=== PATIENT | male | born 1990 | race Two or more races ===

== ENCOUNTER 2017-02-13 08:29 | Emergency (ER) | payer OTHER ==
--- NOTE | ~2017-02-13 | ER ---
PATIENT'S NAME: AUGUSTO DAILEY [facility] AGE: 26 Y [address] ROOM: [place] [address] LOCATION: [facility] ADMIT DATE: 02/13/2017 ER/Outpatient Report DISCHARGE DATE: FAMILY PHYSICIAN: PHYSICIAN, NO ATTENDING PHYSICIAN: Kaylin Bettencourt TIME OF ARRIVAL: 0829 hours. TIME SEEN: 0830 hours. IDENTIFICATION: A 26-year-old male. CHIEF COMPLAINT: Dizziness. HISTORY OF PRESENT ILLNESS: The patient is a 26-year-old male, who got up to have a bowel movement, was sitting on the toilet, felt dizzy and lightheaded, broke out in a sweat and then had a syncopal episode. He complains of a right temporal headache. He denied chest pain. He has had nausea, vomiting, and feels dizzy. He describes it as a both lightheaded and spinning. He said this has happened to him in the past when he has felt sick or he has strained. He was seen here in the emergency room in March of 2016 with chest and neck pain, had a cardiac workup at that time, which was negative and he was told to follow up with the primary care physician. He does not have a primary care physician. ALLERGIES: NO KNOWN DRUG ALLERGIES. CURRENT MEDICATIONS: No current medications. MEDICAL PROBLEMS: The patient denies. 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 He has a significant other and child here with him. Tobacco use, denies. Alcohol use, occasional. Drug use, he has 5- 6 "joints a day." He denies any other drug use. FAMILY HISTORY: He denies any family historyof premature coronary artery disease. Mother has PATIENT'S NAME: AGUUSTO DAILEY [facility] AGE: 26 Y [address] ROOM: [place] [address] LOCATION: [facility] ADMIT DATE: 02/13/2017 ER/Outpatient Report DISCHARGE DATE: FAMILY PHYSICIAN: PHYSICIAN, NO ATTENDING PHYSICIAN: Kaylin Bettencourt hypertension. REVIEW OF SYSTEMS: All systems reviewed and negative other than what is noted in the HPI. He has no blood in his stools. No dark, tarry, or black stools. : No dysuria. MUSCULOSKELETAL: No joint pain. SKIN: No rashes. ENDOCRINE: No history of diabetes or thyroid abnormalities. HEME: No history of bleeding, diathesis, or blood clots. PHYSICAL EXAMINATION: VITAL SIGNS: Height 5 feet and 6 inches, weight 76 kg, blood pressure 137/80, pulse 57, respirations 20, temperature 96.6, and saturations 100% on room air. GENERAL: A 26-year-old male, in mild distress. 7/10 headache. HEENT: Head: Normocephalic and atraumatic. Ears: TMs translucent both ears. Eyes: Pupils are equal and reactive to light and accommodation. Extraocular movements are intact. Nose: Mucosa pink. No lesions. Mouth: No lesions. Pharynx benign. NECK: Supple. No lymphadenopathy. No thyromegaly. LUNGS: Clear to auscultation. Breath sounds are equal. No rhonchi, wheezes, or rales. HEART: Regular rate and rhythm. No murmur, rub, or gallop. ABDOMEN: Bowel sounds present. Soft, nondistended, and nontender. SKIN: [place], warm, and dry. No lesions or rashes noted. NEUROLOGICAL EXAM: No focal deficit. No lower extremity edema. No calf tenderness. EMERGENCY DEPARTMENT COURSE: An IV was initiated. Labs were drawn. Chest x-ray and EKG are obtained. The patient was given Zofran 4 mg for nausea as well as 1 L of normal saline. The patient's symptoms improved, but he states he still continued to feel dizzy. EKG, normal sinus rhythm at 60 beats per minute. No acute ST elevation or depression. Urine drug screen positive for THC, otherwise negative. UA negative. Hemoglobin 15.9, hematocrit 45.3, platelets 183, white count 9.6, 40% segs, 1% bands, 50% lymphocytes. INR of 1.01. Sodium 142, potassium 3.9, chloride 112, CO2 of 23, BUN 15, creatinine 1.1, blood sugar 106. Liver enzymes normal. Cardiac enzymes negative. Magnesium 2.1. Head CT, normal per Radiology. Chest x-ray, no acute process. Pending Radiology over-read. It was recommended to the patient to have 2-hour EKG and enzymes. I also offered him Valium. He was rather belligerent, stating he wanted to go home. He said he has felt this way before and that he was told nothing is wrong with him. He believes we are telling him nothing is wrong with him as I am telling him his studies are normal. I did recommend as I said, 2-hour EKG and enzymes and some further observation here in the emergency room. The patient was adamant about wanting to go home. He stated that he still felt dizzy. He was fairly uncooperative at that point. He did sign an AMA form and left the PATIENT'S NAME: AUGUSTO DAILEY [facility] AGE: 26 Y [address] ROOM: [place], [place] [address] LOCATION: [facility] ADMIT DATE: 02/13/2017 ER/Outpatient Report DISCHARGE DATE: FAMILY PHYSICIAN: PHYSICIAN, MALACHI ATTENDING PHYSICIAN: Kaylin Bettencourt emergency room. KAYLIN BETTENCOURT MD CAR/anabel /[id number] d: 02/13/17 1641 t: 02/14/17 0610, OUTPATIENT REPORT
[2017-02-13 08:55] LABS: HEMATOCRIT 45.3 % (37.0-53.0); HEMOGLOBIN 15.9 g/dL (12.0-17.0); MCH 31.7 pg (27.0-34.0); MCHC 35.1 gm/dL (32.0-36.5); MCV 90.4 fl (83.0-98.0); MPV 10.8 fl (9.4-12.4); PLATELET COUNT 183 K/uL (150-450); RBC 5.01 M/uL (4.00-6.00); RDW-CV 12.1 % (11.9-14.6); WBC 9.6 K/uL (4.0-11.0)
[2017-02-13 09:07] LABS: INR - (THERAPEUTIC) 1.01 (0.92-1.07); PROTIME 10.6 SECONDS (9.8-11.4); PTT 26 SECONDS (25-32)
[2017-02-13 09:21] LABS: ALBUMIN 4.1 gm/dL (3.5-5.0); ALK PHOS 68 IU/L (33-138); ALT 26 IU/L (12-78); ANION GAP 10.9 (10.0-19.0); AST 14 IU/L (10-40); BLOOD UREA NITROGEN 15 mg/dL (6-24); CALCIUM 8.5 mg/dL (8.5-10.5); CHLORIDE 112 mMol/L (96-110); CO2 23 mMol/L (22-32); CPK 131 IU/L (35-332); CREATININE 1.1 mg/dL (0.6-1.3); MAGNESIUM 2.1 mg/dL (1.8-2.6); POTASSIUM 3.9 mMol/L (3.7-5.1); SODIUM 142 mMol/L (135-145); TOTAL BILIRUBIN 0.9 mg/dL (0.0-1.5); TOTAL PROTEIN 7.9 g/dL (6.0-8.4)
[2017-02-13 09:26] LABS: ABSOLUTE NEUTROPHIL CT (ANC) 3.9 K/uL (1.4-9.0); BANDED NEUTROPHIL # 0.1 K/uL (0.0-0.1); BANDED NEUTROPHILS % 1 %; LYMPHOCYTE # 4.9 K/uL (0.8-4.0); LYMPHOCYTE % 50 %; MONOCYTE # 0.6 K/uL (0.0-1.0); SEGMENTED NEUTROPHIL # 3.8 K/uL (1.4-9.0); SEGMENTED NEUTROPHIL % 40 %
[2017-02-13 10:08] LABS: BILIRUBIN URINE NEGATIVE (NEGATIVE); BLOOD URINE NEGATIVE /UL (NEGATIVE); COLOR URINE STRAW (YELLOW); GLUCOSE URINE NEGATIVE (NEGATIVE); KETONE URINE NEGATIVE (NEGATIVE); LEUKOCYTES URINE NEGATIVE /UL (NEGATIVE); NITRITE URINE NEGATIVE (NEGATIVE); PROTEIN URINE NEGATIVE (NEGATIVE); SPEC GRAVITY URINE 1.015 (1.003-1.035); TURBIDITY URINE CLEAR (CLEAR); UROBILINOGEN URINE NORMAL (NORMAL)
[2017-02-13 10:31] LABS: BARBITURATE NEGATIVE (NEGATIVE); COCAINE NEGATIVE (NEGATIVE); OPIATES NEGATIVE (NEGATIVE)
[2017-02-13 10:32] LABS: AMPHETAMINE NEGATIVE (NEGATIVE)
[2017-02-23] MEDS ORDERED: TYLENOL EXTRA500 MG PO (11:41)
== END 2017-02-13 10:48 | disposition left against medical advice (07) ==
LOC: GMED 08:29
PROVIDERS: Family Medicine
DX: R42 Dizziness and giddiness (principal); R51 Headache; R11.2 Nausea with vomiting, unspecified
CPT/HCPCS: J2405; J7030

== ENCOUNTER 2017-02-13 19:03 | Emergency (ER) | payer OTHER ==
--- NOTE | ~2017-02-13 | ER ---
PATIENT'S NAME: AUGUSTO DAILEY [facility] AGE: 26 Y [address] ROOM: [place] [address] LOCATION: [facility] ADMIT DATE: 02/13/2017 ER/Outpatient Report DISCHARGE DATE: 02/13/2017 FAMILY PHYSICIAN: PHYSICIAN, NO ATTENDING PHYSICIAN: Daniel Godoy Time of Arrival: 1903 hours. Time of Evaluation: 1920 hours. CHIEF COMPLAINT: Nausea, vomiting, headache. HISTORY OF PRESENT ILLNESS: This is a 26-year-old male, who presents to the ER. He states he has not been feeling well for the past 12 hours. He was here in the emergency room earlier today and left AMA because he says he became upset with them because they told him everything looked fine. He states he refused medications earlier today, but he does not want to refuse his medications now. He states he has not been able to hold any fluids down throughout the day. He says he feels like he has a headache, and he feels a little bit dizzy. He has had a decrease in appetite secondary to this. He states he just wants something to help him sleep. ALLERGIES: NO KNOWN ALLERGIES. MEDICATIONS: Please see medication list in nurse's notes. PAST MEDICAL HISTORY: Negative. PAST SURGICAL HISTORY: None. SOCIAL HISTORY: He does smoke marijuana. He drinks some alcohol last night. REVIEW OF SYSTEMS: All systems were reviewed and were negative with the exception of those discussed in the HPI. PHYSICAL EXAMINATION: VITAL SIGNS: Height 5 feet 6 inches stated, weight 76.1 kg taken, blood pressure is 126/72, pulse 85, respirations 16, temperature 99.4 degrees PATIENT'S NAME: AUGUSTO DAILEY [facility] AGE: 26 Y [address] ROOM: [place] [address] LOCATION: [facility] ADMIT DATE: 02/13/2017 ER/Outpatient Report DISCHARGE DATE: 02/13/2017 FAMILY PHYSICIAN: PHYSICIAN, NO ATTENDING PHYSICIAN: Daniel Godoy tympanically, and saturations 99% on room air. [place] Coma Score is 15. GENERAL: An alert, anxious appearing 26-year-old male, in mild distress. HEENT: Head: Normocephalic. Eyes: Pupils are equal and reactive to light. Ears: TMs display good light reflexes bilaterally. Nose: Turbinates pink with no drainage. Throat: No exudates or erythema. He does display moist mucous membranes. NECK: Supple. No lymphadenopathy. No nuchal rigidity. LUNGS: Clear to auscultation bilaterally. HEART: Regular rate and rhythm. ABDOMEN: Soft, nontender. He has good bowel sounds throughout. EXTREMITIES: No clubbing or cyanosis. He has full range of motion of all limbs. LABORATORY DATA AND X-RAYS: Labs were reviewed from earlier today. His CT scan was reviewed from earlier today. His current lab tests: CBC: White count is 16.1, hemoglobin is 15.9, platelets 213, ANC is 13.2. CMS: Sodium is 139, potassium is 3.4, glucose is 124, BUN 11, creatinine is 1.0. CPK is 108, CK-MB is 1.3, troponin I is less than 0.040. IMPRESSION: 1. Headache. 2. Nausea and vomiting. ASSESSMENT AND PLAN: We did start an IV here in the emergency room and did give him a total of 2 L of IV fluids. We did give him Compazine 10 mg IV and Benadryl 50 mg IV. The patient states he feels really anxious and still is not improving. So, we did give him 0.5 mg of Ativan and later gave Toradol 30 mg IV. The patient rested and slept his entire stay. I will dismiss him to home with a prescription for Zofran to use as directed. He needs to continue to push fluids, monitor his symptoms. He may take the Zofran as needed for nausea, and I would like him to follow up with his primary care physician tomorrow for followup care. The patient understands and agrees with care. SHAYLA SILVESTRE PA-C FOR MD PAVAN GARNER/anabel PATIENT'S NAME: AUGUSTO DAILEY [facility] AGE: 26 Y [address] ROOM: [place] [address] LOCATION: [facility] ADMIT DATE: 02/13/2017 ER/Outpatient Report DISCHARGE DATE: 02/13/2017 FAMILY PHYSICIAN: MALACHI STOVER ATTENDING PHYSICIAN: Daniel Godoy /[id number] d: t: 02/16/17 1237, OUTPATIENT REPORT
[2017-02-13 19:47] LABS: BASOPHIL % 0.2 %; EOSINOPHIL % 0.1 %; HEMATOCRIT 45.5 % (37.0-53.0); HEMOGLOBIN 15.9 g/dL (12.0-17.0); IMMATURE GRANULOCYTE # 0.1 K/uL (0.0-0.3); IMMATURE GRANULOCYTE % 0.4 %; LYMPHOCYTE # 2.3 K/uL (0.8-4.0); LYMPHOCYTE % 14.3 %; MCH 30.7 pg (27.0-34.0); MCHC 34.9 gm/dL (32.0-36.5); MCV 87.8 fl (83.0-98.0); MONOCYTE # 0.6 K/uL (0.0-1.0); MONOCYTE % 3.5 %; MPV 10.9 fl (9.4-12.4); NEUTROPHIL # (ANC) 13.2 K/uL (1.4-9.0); NEUTROPHIL % 81.5 %; NRBC % 0 /100WBC (0-0.00); PLATELET COUNT 213 K/uL (150-450); RBC 5.18 M/uL (4.00-6.00); RDW-CV 11.9 % (11.9-14.6)
[2017-02-13 20:01] LABS: WBC 16.1 K/uL (4.0-11.0)
[2017-02-13 20:11] LABS: ALBUMIN 4.3 gm/dL (3.5-5.0); ALK PHOS 69 IU/L (33-138); ALT 24 IU/L (12-78); ANION GAP 12.4 (10.0-19.0); AST 12 IU/L (10-40); BLOOD UREA NITROGEN 11 mg/dL (6-24); CALCIUM 8.9 mg/dL (8.5-10.5); CHLORIDE 108 mMol/L (96-110); CO2 22 mMol/L (22-32); CPK 108 IU/L (35-332); POTASSIUM 3.4 mMol/L (3.7-5.1); SODIUM 139 mMol/L (135-145)
[2017-02-13 20:14] LABS: TOTAL BILIRUBIN 1.5 mg/dL (0.0-1.5)
[2017-02-23] MEDS ORDERED: TYLENOL EXTRA500 MG PO (11:41)
== END 2017-02-13 21:25 | disposition disaster alternative care site (69) ==
LOC: GMED 19:03
PROVIDERS: Physician Assistant Medical
DX: R51 Headache (principal); R11.2 Nausea with vomiting, unspecified; F41.9 Anxiety disorder, unspecified
CPT/HCPCS: J0780; J1200; J1885; J2060; J7030

== ENCOUNTER → 2017-02-14 | Outpatient (CLI) | payer OTHER ==
[~2017-02-14] MED LIST: TYLENOL EXTRA500 MG PO
== END | disposition disaster alternative care site (69) ==
LOC: GAMB 23:25
DX: S09.90XA Unspecified injury of head, initial encounter (principal); I63.9 Cerebral infarction, unspecified; H54.7 Unspecified visual loss; R45.1 Restlessness and agitation